=== PATIENT | male | born 1940 | race Caucasian/White ===

== ENCOUNTER 2019-07-11 18:00 | Inpatient (IN) ==
[2019-07-11] MEDS ORDERED: Aspirin 81 MG TAB.CHEW PO STA (18:16)
[2019-07-11 19:10] LABS: Basophils % 0.4 %; Eosinophils # 0.1 K/mcL (0.0-0.6); Eosinophils % 0.8 %; Hematocrit 44.8 % (37.5-50.1); Immature Granulocytes % 0.5 % (0-4); Lymphocytes # 1.8 K/mcL (0.6-4.6); Mean Corpuscular HGB Conc 33.5 g/dL (31.6-35.5); Mean Corpuscular Hemoglobin 30.7 pg (28.0-33.3); Mean Corpuscular Volume 91.8 fL (83.0-100.0); Mean Platelet Volume 10.9 fL (9.4-12.4); Monocytes # 0.9 K/mcL (0.0-1.3); Monocytes % 8.7 %; Neutrophils # 7.6 K/mcL (1.6-8.9); Platelet Count 153 K/mcL (140-400); Red Blood Count 4.88 M/mcL (4.19-5.50); Red Cell Distribution Width 14.5 % (11.5-14.5); Segmented Neutrophils % 72.6 %; White Blood Count 10.5 K/mcL (4.3-11.1)
[2019-07-11 19:16] LABS: Calcium 8.9 mg/dL (8.6-10.3); Potassium 3.8 mEq/L (3.5-5.1)
[2019-07-11 19:24] LABS: Troponin I 0.13 ng/mL (< 0.04)
[2019-07-11] MEDS ORDERED: MetroNIDAZOLE 500 MG/100 ML 500 MG/100 ML BAG IVPB ONE (19:33)
[2019-07-11] MEDS ORDERED: 0.9 % Sodium Chloride 1,000 ML IVC ONE (19:34)
[2019-07-11] MEDS ORDERED: Naloxone 0.4 MG/ML INJ IVP PRN (20:06)
[2019-07-11] MEDS ORDERED: D5% in Water 1,000 ML IVC PRN (20:06)
[2019-07-11] MEDS ORDERED: Dextrose Gel 15 GM/37.5 ML TUBE PO PRN ×2 (20:06)
[2019-07-11] MEDS ORDERED: *HR* Dextrose 50 % in Water (Syg) 50 ML SYRINGE IVP PRN (20:06)
[2019-07-11 20:09] LABS: Prothrombin Time 11.7 Seconds (9.4-12.1)
[2019-07-11] MEDS ORDERED: 0.9 % Sodium Chloride 1,000 ML IVC SCH (20:15)
[2019-07-11] MEDS ORDERED: *HR* Heparin 5,000 UNIT/ML VIAL IVP ONE (20:30)
[2019-07-11] MEDS ORDERED: Nitroglycerin 0.4 MG TAB.SUBL SL PRN (20:30)
[2019-07-11] MEDS ORDERED: *HR* Heparin 5,000 UNIT/ML VIAL IVP PRN ×2 (20:30)
[2019-07-11] MEDS ORDERED: Heparin 25,000 UNIT/250 ML D5W 25,000 UNIT/250 ML IV.SOLN IVC SCH (21:00)
[2019-07-11 21:02] LABS: Estimated Average Glucose 237 mg/dl
[2019-07-11] MEDS: Insulin LISPRO 300 UNITS/3 ML VIAL SQ SCH (21:44)
[2019-07-11 22:26] LABS: Hematocrit 42.6 % (37.5-50.1); Hemoglobin 14.1 g/dL (12.9-16.9); Mean Corpuscular HGB Conc 33.1 g/dL (31.6-35.5); Mean Corpuscular Hemoglobin 30.4 pg (28.0-33.3); Mean Corpuscular Volume 91.8 fL (83.0-100.0); Mean Platelet Volume 11.1 fL (9.4-12.4); Platelet Count 154 K/mcL (140-400); Red Blood Count 4.64 M/mcL (4.19-5.50); Red Cell Distribution Width 14.6 % (11.5-14.5); White Blood Count 10.5 K/mcL (4.3-11.1)
[2019-07-11 22:33] LABS: Heparin anti-factor XA UFH < 0.04 IU/mL (0.30-0.70); Prothrombin Time 11.4 Seconds (9.4-12.1)
[2019-07-11 22:51] LABS: Bilirubin,Urine Negative (Negative); Blood,Urine Negative (Negative); Clarity,Urine Clear (Clear); Color,Urine Yellow (Yellow); Glucose,Urine (UA) 100 mg/dL (Normal); Ketones,Urine Negative (Negative); Leukocyte Esterase,Urine Negative (Negative); Nitrite,Urine Negative (Negative); PH,Urine 5.5 pH Units (5.0-8.0); Protein,Urine Negative (Neg-Trace); Specific Gravity,Urine 1.019 (1.010-1.025); Urobilinogen,Urine Normal (Normal)
[2019-07-11] MEDS ORDERED: Melatonin 3 MG TABLET PO ONE (23:35)
[2019-07-12] MEDS ORDERED: Naloxone 0.4 MG/ML INJ IVP PRN (01:48)
[2019-07-12] MEDS ORDERED: *HR* LORazepam 2 MG/ML VIAL IVP ONE (01:51)
[2019-07-12] MEDS: Insulin DETEMIR 100 UNIT/ML X5UNITS SQ SCH ×2 (02:16→09:46)
[2019-07-12 03:05] LABS: Basophils % 0.3 %; Eosinophils # 0.1 K/mcL (0.0-0.6); Eosinophils % 0.9 %; Hematocrit 40.6 % (37.5-50.1); Hemoglobin 13.4 g/dL (12.9-16.9); Immature Granulocytes % 0.4 % (0-4); Lymphocytes # 1.8 K/mcL (0.6-4.6); Lymphocytes % 19.4 %; Mean Corpuscular Hemoglobin 30.4 pg (28.0-33.3); Mean Corpuscular Volume 92.1 fL (83.0-100.0); Mean Platelet Volume 11.1 fL (9.4-12.4); Monocytes # 0.9 K/mcL (0.0-1.3); Monocytes % 10.4 %; Neutrophils # 6.2 K/mcL (1.6-8.9); Platelet Count 148 K/mcL (140-400); Red Blood Count 4.41 M/mcL (4.19-5.50); Red Cell Distribution Width 14.6 % (11.5-14.5); Segmented Neutrophils % 68.6 %
[2019-07-12 03:24] LABS: Albumin 3.2 g/dL (3.5-5.7); Albumin/Globulin Ratio 1.3 (1.1-2.2); Bilirubin,Total 0.6 mg/dL (0.3-1.0); Calcium 7.9 mg/dL (8.6-10.3); Chol/HDL Ratio 2.8 (0-4.9); Globulin 2.4 g/dL (2.4-3.5); Magnesium 1.8 mg/dL (1.6-2.6); Phosphorous 2.9 mg/dL (2.7-4.5); Potassium 3.8 mEq/L (3.5-5.1); Total Protein 5.6 g/dL (6.4-8.9)
[2019-07-12] MEDS: MetroNIDAZOLE 500 MG/100 ML 500 MG/100 ML BAG IVPB SCH ×2 (05:14→09:44)
[2019-07-12] MEDS ORDERED: Perflutren Lipid Microsphere 1.3 ML in 0.9 % Sodium Chloride 8.7 ML IVP ONE (08:12)
[2019-07-12] MEDS: Insulin LISPRO 300 UNITS/3 ML VIAL SQ SCH ×3 (09:30→17:11)
[2019-07-12] MEDS: allopurinoL 300 MG TABLET PO SCH (09:44)
[2019-07-12] MEDS: Pregabalin 75 MG CAPSULE PO SCH ×2 (09:44→19:41)
[2019-07-12] MEDS: Aspirin Enteric Coated 81 MG Tablet PO SCH (09:45)
[2019-07-12] MEDS: Isosorbide MONOnitrate (24 HR) 30 MG TAB.ER.24H PO SCH (09:45)
[2019-07-12] MEDS ORDERED: Piperacillin/Tazobactam 3.375 GM in 0.9 % Sodium Chloride Mini Bag 100 ML IVPB SCH (10:04)
[2019-07-12] MEDS: carvediloL 6.25 MG TABLET PO SCH ×2 (11:29→17:29)
[2019-07-12] MEDS: Furosemide 40 MG TABLET PO SCH (17:29)
[2019-07-12] MEDS ORDERED: *HR* Heparin 5,000 UNIT/ML VIAL SQ SCH (18:00)
[2019-07-12] MEDS: Piperacillin/Tazobactam 3.375 GM in 0.9 % Sodium Chloride Mini Bag 100 ML IVPB SCH (19:41)
[2019-07-12] MEDS ORDERED: Insulin DETEMIR 100 UNIT/ML X5UNITS SQ SCH (21:00)
[2019-07-13] MEDS ORDERED: *HR* LORazepam 2 MG/ML VIAL IVP ONE (00:07)
[2019-07-13] MEDS: Piperacillin/Tazobactam 3.375 GM in 0.9 % Sodium Chloride Mini Bag 100 ML IVPB SCH ×3 (03:42→22:18)
[2019-07-13 05:23] LABS: Calcium 8.7 mg/dL (8.6-10.3); Magnesium 1.9 mg/dL (1.6-2.6); Phosphorous 2.6 mg/dL (2.7-4.5); Potassium 3.8 mEq/L (3.5-5.1)
[2019-07-13] MEDS: Insulin LISPRO 300 UNITS/3 ML VIAL SQ SCH ×3 (11:21→16:57)
[2019-07-13] MEDS: Isosorbide MONOnitrate (24 HR) 30 MG TAB.ER.24H PO SCH (11:29)
[2019-07-13] MEDS: Pregabalin 75 MG CAPSULE PO SCH ×2 (11:29→22:21)
[2019-07-13] MEDS: Aspirin Enteric Coated 81 MG Tablet PO SCH (11:29)
[2019-07-13] MEDS: allopurinoL 300 MG TABLET PO SCH (11:30)
[2019-07-13] MEDS: carvediloL 6.25 MG TABLET PO SCH ×2 (11:30→16:22)
[2019-07-13] MEDS: Furosemide 40 MG TABLET PO SCH ×2 (11:30→16:22)
[2019-07-13] MEDS: Insulin DETEMIR 100 UNIT/ML X5UNITS SQ SCH ×2 (11:32→22:20)
[2019-07-13] MEDS: *HR* LORazepam 1 MG TABLET PO PRN (22:21)
[2019-07-14 03:23] LABS: Calcium 8.4 mg/dL (8.6-10.3); Magnesium 1.7 mg/dL (1.6-2.6); Phosphorous 3.1 mg/dL (2.7-4.5)
[2019-07-14] MEDS: Piperacillin/Tazobactam 3.375 GM in 0.9 % Sodium Chloride Mini Bag 100 ML IVPB SCH ×3 (05:38→20:45)
[2019-07-14] MEDS: Aspirin Enteric Coated 81 MG Tablet PO SCH (08:53)
[2019-07-14] MEDS: Isosorbide MONOnitrate (24 HR) 30 MG TAB.ER.24H PO SCH (08:53)
[2019-07-14] MEDS: allopurinoL 300 MG TABLET PO SCH (08:54)
[2019-07-14] MEDS: Insulin LISPRO 300 UNITS/3 ML VIAL SQ SCH ×4 (08:54→20:53)
[2019-07-14] MEDS: carvediloL 6.25 MG TABLET PO SCH ×2 (08:54→16:53)
[2019-07-14] MEDS: Pregabalin 75 MG CAPSULE PO SCH ×2 (08:54→20:47)
[2019-07-14] MEDS: Furosemide 40 MG TABLET PO SCH ×2 (08:54→16:53)
[2019-07-14] MEDS: Insulin DETEMIR 100 UNIT/ML X5UNITS SQ SCH ×2 (08:58→20:52)
[2019-07-14] MEDS: *HR* Heparin 5,000 UNIT/ML VIAL SQ SCH (16:53)
[2019-07-14] MEDS: *HR* LORazepam 1 MG TABLET PO PRN (20:48)
[2019-07-15] MEDS: Piperacillin/Tazobactam 3.375 GM in 0.9 % Sodium Chloride Mini Bag 100 ML IVPB SCH ×3 (05:14→20:26)
[2019-07-15] MEDS: *HR* Heparin 5,000 UNIT/ML VIAL SQ SCH ×2 (05:15→17:05)
[2019-07-15] MEDS: carvediloL 6.25 MG TABLET PO SCH ×2 (08:18→17:05)
[2019-07-15] MEDS: Aspirin Enteric Coated 81 MG Tablet PO SCH (08:18)
[2019-07-15] MEDS: allopurinoL 300 MG TABLET PO SCH (08:18)
[2019-07-15] MEDS: Insulin LISPRO 300 UNITS/3 ML VIAL SQ SCH ×6 (08:19→20:28)
[2019-07-15] MEDS: Isosorbide MONOnitrate (24 HR) 30 MG TAB.ER.24H PO SCH (08:19)
[2019-07-15] MEDS: Pregabalin 75 MG CAPSULE PO SCH ×2 (08:19→20:26)
[2019-07-15] MEDS: Insulin DETEMIR 100 UNIT/ML X5UNITS SQ SCH ×2 (08:19→20:27)
[2019-07-15] MEDS: Furosemide 40 MG TABLET PO SCH ×2 (08:19→17:05)
[2019-07-15] MEDS: *HR* LORazepam 1 MG TABLET PO PRN (20:26)
[2019-07-16 01:59] LABS: Calcium 8.9 mg/dL (8.6-10.3); Phosphorous 2.4 mg/dL (2.7-4.5); Potassium 3.6 mEq/L (3.5-5.1)
[2019-07-16] MEDS: Piperacillin/Tazobactam 3.375 GM in 0.9 % Sodium Chloride Mini Bag 100 ML IVPB SCH ×3 (04:31→21:53)
[2019-07-16] MEDS: *HR* Heparin 5,000 UNIT/ML VIAL SQ SCH ×2 (04:32→17:21)
[2019-07-16] MEDS: Aspirin Enteric Coated 81 MG Tablet PO SCH (08:10)
[2019-07-16] MEDS: allopurinoL 300 MG TABLET PO SCH (08:10)
[2019-07-16] MEDS: Furosemide 40 MG TABLET PO SCH ×2 (08:10→17:21)
[2019-07-16] MEDS: Isosorbide MONOnitrate (24 HR) 30 MG TAB.ER.24H PO SCH (08:10)
[2019-07-16] MEDS: carvediloL 6.25 MG TABLET PO SCH ×2 (08:10→17:21)
[2019-07-16] MEDS: Pregabalin 75 MG CAPSULE PO SCH ×2 (08:10→21:52)
[2019-07-16] MEDS: Insulin DETEMIR 100 UNIT/ML X5UNITS SQ SCH ×2 (08:11→21:52)
[2019-07-16] MEDS: Insulin LISPRO 300 UNITS/3 ML VIAL SQ SCH ×7 (08:11→22:05)
[2019-07-16] MEDS: *HR* LORazepam 1 MG TABLET PO PRN (21:52)
[2019-07-17] MEDS: Piperacillin/Tazobactam 3.375 GM in 0.9 % Sodium Chloride Mini Bag 100 ML IVPB SCH ×2 (04:25→12:08)
[2019-07-17] MEDS: *HR* Heparin 5,000 UNIT/ML VIAL SQ SCH (05:52)
[2019-07-17] MEDS: Insulin DETEMIR 100 UNIT/ML X5UNITS SQ SCH (07:59)
[2019-07-17] MEDS: allopurinoL 300 MG TABLET PO SCH (07:59)
[2019-07-17] MEDS: Pregabalin 75 MG CAPSULE PO SCH (07:59)
[2019-07-17] MEDS: Aspirin Enteric Coated 81 MG Tablet PO SCH (07:59)
[2019-07-17] MEDS: Furosemide 40 MG TABLET PO SCH (07:59)
[2019-07-17] MEDS: Insulin LISPRO 300 UNITS/3 ML VIAL SQ SCH ×4 (08:00→11:58)
[2019-07-17] MEDS: carvediloL 6.25 MG TABLET PO SCH (08:11)
[2019-07-17] MEDS: Isosorbide MONOnitrate (24 HR) 30 MG TAB.ER.24H PO SCH (08:11)
[2019-07-17 11:01] VITALS: BP 111/69
== END 2019-07-17 13:25 | disposition home or self-care (01) | DRG 392 ==
LOC: 2ANU 18:00 → EMEROOARM 18:00 → SUATTDRO 20:03 → 2ANU 21:05
PROVIDERS: ADMIT Family Medicine; ATTEND Internal Medicine

== ENCOUNTER 2019-08-24 13:46 | Observation (INO) ==
[2019-08-24] MEDS ORDERED: *HR* Promethazine 25 MG/ML VIAL IVP PRN (15:37)
[2019-08-24] MEDS ORDERED: Ondansetron 4 MG/2 ML VIAL IVP PRN (15:37)
[2019-08-24] MEDS ORDERED: Naloxone 0.4 MG/ML INJ IVP PRN (15:37)
[2019-08-24] MEDS ORDERED: Acetaminophen 325 MG TABLET PO PRN (15:37)
[2019-08-24] MEDS ORDERED: MOM Conc 10 ML UD.LIQ PO PRN (15:37)
[2019-08-24] MEDS ORDERED: Mag Hydrox/Al Hydrox/Simeth 30 ML UDC PO PRN (15:37)
[2019-08-24] MEDS ORDERED: *HR* Dextrose 50 % in Water (Syg) 50 ML SYRINGE IVP PRN (15:44)
[2019-08-24] MEDS ORDERED: Dextrose Gel 15 GM/37.5 ML TUBE PO PRN ×2 (15:44)
[2019-08-24] MEDS ORDERED: D5% in Water 1,000 ML IVC PRN (15:44)
[2019-08-24] MEDS ORDERED: *HR* Heparin 5,000 UNIT/ML VIAL IVP PRN ×2 (15:53)
[2019-08-24] MEDS ORDERED: *HR* Heparin 5,000 UNIT/ML VIAL IVP ONE (15:53)
[2019-08-24] MEDS ORDERED: Heparin 25,000 UNIT/250 ML D5W 25,000 UNIT/250 ML IV.SOLN IVC SCH (16:00)
[2019-08-24 16:25] LABS: Hematocrit 44.2 % (37.5-50.1); Hemoglobin 14.2 g/dL (12.9-16.9); Mean Corpuscular HGB Conc 32.1 g/dL (31.6-35.5); Mean Corpuscular Hemoglobin 29.8 pg (28.0-33.3); Mean Corpuscular Volume 92.9 fL (83.0-100.0); Mean Platelet Volume 11.2 fL (9.4-12.4); Platelet Count 193 K/mcL (140-400); Red Blood Count 4.76 M/mcL (4.19-5.50); Red Cell Distribution Width 13.9 % (11.5-14.5); White Blood Count 9.4 K/mcL (4.3-11.1)
[2019-08-24 16:29] LABS: Heparin anti-factor XA UFH < 0.04 IU/mL (0.30-0.70)
[2019-08-24 16:30] LABS: Prothrombin Time 11.8 Seconds (9.4-12.1)
[2019-08-24] MEDS: carvediloL 6.25 MG TABLET PO SCH (17:09)
[2019-08-24] MEDS: Insulin LISPRO 300 UNITS/3 ML VIAL SQ SCH (17:10)
[2019-08-24] MEDS: Pregabalin 75 MG CAPSULE PO SCH (20:03)
[2019-08-24] MEDS ORDERED: Morphine Sulfate 2 MG/ML SYRINGE IVP ONE (20:12)
[2019-08-24] MEDS: *HR* OxyCODONE Immed Rel 5 MG TABLET PO PRN (20:28)
[2019-08-24] MEDS ORDERED: methocarbamoL 500 MG TABLET PO ONE (20:50)
[2019-08-24] MEDS ORDERED: Insulin LISPRO 300 UNITS/3 ML VIAL SQ SCH (21:00)
[2019-08-24] MEDS: Insulin DETEMIR 100 UNIT/ML X5UNITS SQ SCH (21:29)
[2019-08-25 05:12] LABS: Basophils # 0.1 K/mcL (0.0-0.2); Basophils % 0.5 %; Eosinophils # 0.2 K/mcL (0.0-0.6); Eosinophils % 1.9 %; Hematocrit 43.6 % (37.5-50.1); Hemoglobin 14.2 g/dL (12.9-16.9); Immature Granulocytes % 0.6 % (0-4); Lymphocytes # 3.3 K/mcL (0.6-4.6); Lymphocytes % 32.9 %; Mean Corpuscular HGB Conc 32.6 g/dL (31.6-35.5); Monocytes # 0.8 K/mcL (0.0-1.3); Monocytes % 7.8 %; Neutrophils # 5.6 K/mcL (1.6-8.9); Platelet Count 195 K/mcL (140-400); Red Blood Count 4.74 M/mcL (4.19-5.50); Red Cell Distribution Width 14.2 % (11.5-14.5); Segmented Neutrophils % 56.3 %
[2019-08-25 05:30] LABS: BUN/Creatinine Ratio 12 (6-26); Blood Urea Nitrogen 16 mg/dL (8-23); Calcium 8.2 mg/dL (8.6-10.3); Carbon Dioxide 30 mEq/L (23-29); Chloride 103 mEq/L (98-107); Chol/HDL Ratio 2.9 (0-4.9); Cholesterol 107 mg/dL (< 200); Glucose 123 mg/dL (70-105); HDL Cholesterol 37 mg/dL (40-59); LDL Cholesterol,Calculated 41 mg/dL (0-99); Magnesium 1.8 mg/dL (1.6-2.6); Osmolality,Calculated 295 (280-300); Phosphorous 2.7 mg/dL (2.7-4.5); Potassium 3.1 mEq/L (3.5-5.1); Sodium 141 mEq/L (136-145); Triglycerides 146 mg/dL (< 150); eGFR For African Americans > 60 (> 60); eGFR For Non-African Americans 51 (> 60)
[2019-08-25] MEDS: *HR* OxyCODONE Immed Rel 5 MG TABLET PO PRN (07:53)
[2019-08-25] MEDS ORDERED: calcitrioL 0.25 MCG CAPSULE PO SCH (09:00)
[2019-08-25] MEDS ORDERED: Aspirin Enteric Coated 81 MG Tablet PO SCH (09:00)
[2019-08-25] MEDS ORDERED: Furosemide 40 MG TABLET PO SCH (09:00)
[2019-08-25] MEDS ORDERED: Isosorbide MONOnitrate (24 HR) 30 MG TAB.ER.24H PO SCH (09:00)
[2019-08-25] MEDS ORDERED: allopurinoL 300 MG TABLET PO SCH (09:00)
[2019-08-25] MEDS: Insulin LISPRO 300 UNITS/3 ML VIAL SQ SCH ×2 (09:27→12:43)
[2019-08-25] MEDS: carvediloL 6.25 MG TABLET PO SCH (09:38)
[2019-08-25] MEDS: Pregabalin 75 MG CAPSULE PO SCH (09:39)
[2019-08-25] MEDS: Insulin DETEMIR 100 UNIT/ML X5UNITS SQ SCH (09:40)
[2019-08-25 10:57] VITALS: BP 105/65
[2019-08-26] MEDS ORDERED: Cholecalciferol (D-3) 1,000 UNIT (25MCG) TABLET PO SCH (09:00)
== END 2019-08-25 14:55 | disposition home health service (06) ==
LOC: EMEROOARM 13:46 → 2ANU 13:46
PROVIDERS: ADMIT Internal Medicine; ATTEND Internal Medicine

== ENCOUNTER 2021-09-17 19:08 | Inpatient (IN) ==
[2021-09-17] MEDS ORDERED: 0.9 % Sodium Chloride 1,000 ML IVC SCH (23:45)
[2021-09-17] MEDS ORDERED: Naloxone 0.4 MG/ML INJ IVP PRN (23:58)
[2021-09-17] MEDS ORDERED: Acetaminophen 325 MG TABLET PO PRN (23:58)
[2021-09-17] MEDS ORDERED: Melatonin 3 MG TABLET PO PRN (23:58)
[2021-09-17] MEDS ORDERED: Ondansetron ODT 4 MG TAB.RAPDIS SL PRN (23:58)
[2021-09-18] MEDS ORDERED: Morphine Sulfate 2 MG/ML SYRINGE IVP ONE (00:27)
[2021-09-18 00:51] LABS: Bacteria,Urine Few per hpf (None-Few); Bilirubin,Urine Negative (Negative); Blood,Urine Small (Negative); Clarity,Urine Turbid (Clear); Color,Urine Yellow (Yellow); Glucose,Urine (UA) 150 mg/dL (Normal); Hyaline Casts,Urine Few per lpf (None Seen); Ketones,Urine 20 mg/dL (Negative); Leukocyte Esterase,Urine Moderate (Negative); Mucus,Urine Few per lpf (None-Few); Nitrite,Urine Negative (Negative); PH,Urine 6.5 pH Units (5.0-8.0); Protein,Urine >=300 mg/dL (Neg-Trace); Specific Gravity,Urine 1.023 (1.010-1.025); Squamous Epithelial Cell,Urine Few per hpf (None-Few); Urobilinogen,Urine Normal (Normal); WBC,Urine TNTC per hpf (0-3)
[2021-09-18] MEDS ORDERED: *HR* Dextrose 50 % in Water (Syg) 50 ML SYRINGE IVP PRN ×3 (01:04→22:26)
[2021-09-18] MEDS ORDERED: Dextrose Gel 15 GM/37.5 ML TUBE PO PRN ×5 (01:04→22:26)
[2021-09-18] MEDS ORDERED: D5% in Water 1,000 ML IVC PRN ×3 (01:04→22:26)
[2021-09-18 01:41] LABS: Hematocrit 35.4 % (37.5-50.1); Hemoglobin 11.5 g/dL (12.9-16.9); Mean Corpuscular HGB Conc 32.5 g/dL (31.6-35.5); Mean Corpuscular Hemoglobin 30.3 pg (28.0-33.3); Mean Corpuscular Volume 93.2 fL (83.0-100.0); Mean Platelet Volume 10.4 fL (9.4-12.4); Platelet Count 363 K/mcL (140-400); Red Cell Distribution Width 14.9 % (11.5-14.5)
[2021-09-18 02:06] LABS: BUN/Creatinine Ratio 24 (6-26); Blood Urea Nitrogen 33 mg/dL (8-23); Calcium 8.2 mg/dL (8.6-10.3); Carbon Dioxide 23 mEq/L (23-29); Chloride 101 mEq/L (98-107); Glucose 309 mg/dL (70-105); Magnesium 1.6 mg/dL (1.6-2.6); Osmolality,Calculated 303 (280-300); Phosphorous 2.8 mg/dL (2.7-4.5); Potassium 4.1 mEq/L (3.5-5.1); Sodium 137 mEq/L (136-145); eGFR For African Americans > 60 (> 60); eGFR For Non-African Americans 50 (> 60)
[2021-09-18] MEDS: Insulin LISPRO 300 UNITS/3 ML VIAL SUBQ SCH ×3 (05:26→23:09)
[2021-09-18 05:59] LABS: Estimated Average Glucose 237 mg/dl; Hemoglobin A1C 9.9 %
[2021-09-18] MEDS ORDERED: carvediloL 6.25 MG TABLET PO SCH (08:00)
[2021-09-18] MEDS ORDERED: Piperacillin/Tazobactam 3.375 GM in 0.9 % Sodium Chloride Mini Bag 100 ML IVPB SCH (08:00)
[2021-09-18] MEDS ORDERED: lisinopriL 5 MG TABLET PO SCH (09:00)
[2021-09-18] MEDS ORDERED: Isosorbide MONOnitrate (24 HR) 30 MG TAB.ER.24H PO SCH (09:00)
[2021-09-18] MEDS ORDERED: *HR* FentaNYL (PF) 100 MCG/2 ML VIAL IVP PRN (10:33)
[2021-09-18] MEDS ORDERED: *HR* HYDROmorphone PF 0.5 MG/0.5 ML SYRINGE IVP PRN (10:33)
[2021-09-18] MEDS ORDERED: Albuterol 2.5 MG/3 ML NEBULIZER IH PRN ×2 (10:33→15:16)
[2021-09-18] MEDS ORDERED: Ondansetron 4 MG/2 ML VIAL IVP PRN ×2 (10:33→15:16)
[2021-09-18] MEDS ORDERED: Bupivacaine/EPI 1:200k 0.25% 50 ML VIAL ONE (11:07)
[2021-09-18] MEDS ORDERED: Lidocaine 1% 20 ML MDV ONE (11:07)
[2021-09-18] MEDS ORDERED: Lidocaine -MPF 2% 2 ML VIAL ONE (12:45)
[2021-09-18] MEDS ORDERED: Ondansetron 4 MG/2 ML VIAL ONE (12:45)
[2021-09-18] MEDS ORDERED: *HR* FentaNYL (PF) 100 MCG/2 ML VIAL ONE (12:45)
[2021-09-18] MEDS ORDERED: Insulin Human Regular 8 UNIT in 0.9 % Sodium Chloride 10 ML IV ONE (12:49)
[2021-09-18] MEDS ORDERED: carvediloL 6.25 MG TABLET PO ONE (12:52)
[2021-09-18] MEDS ORDERED: Vancomycin 1,000 MG VIAL ONE (12:59)
[2021-09-18] MEDS ORDERED: Isosorbide MONOnitrate (24 HR) 30 MG TAB.ER.24H PO ONE (13:01)
[2021-09-18] MEDS ORDERED: *HR* Vasopressin 20 UNIT/ML VIAL ONE (13:23)
[2021-09-18] MEDS ORDERED: *HR* Etomidate 40 MG/20 ML VIAL IVP ONE (13:46)
[2021-09-18] MEDS ORDERED: Ondansetron ODT 4 MG TAB.RAPDIS SL PRN (15:16)
[2021-09-18] MEDS ORDERED: Melatonin 3 MG TABLET PO PRN (15:16)
[2021-09-18] MEDS ORDERED: Naloxone 0.4 MG/ML INJ IVP PRN (15:16)
[2021-09-18] MEDS: Piperacillin/Tazobactam 3.375 GM in 0.9 % Sodium Chloride Mini Bag 100 ML IVPB SCH ×2 (17:12→23:08)
[2021-09-18] MEDS: carvediloL 6.25 MG TABLET PO SCH (17:20)
[2021-09-18] MEDS: Acetaminophen 325 MG TABLET PO PRN (17:24)
[2021-09-18] MEDS ORDERED: Insulin LISPRO 300 UNITS/3 ML VIAL SUBQ SCH (18:00)
[2021-09-18] MEDS ORDERED: Vancomycin 1,250 MG/262.5 ML IV.SOLN IVPB SCH (18:00)
[2021-09-18] MEDS ORDERED: *HR* LORazepam 1 MG TABLET PO SCH (21:00)
[2021-09-18] MEDS ORDERED: Melatonin 3 MG TABLET PO SCH (21:00)
[2021-09-18] MEDS ORDERED: Insulin DETEMIR 100 UNIT/ML X5UNITS SUBQ SCH (21:00)
[2021-09-18] MEDS ORDERED: QUEtiapine Fumarate 100 MG TABLET PO SCH (21:00)
[2021-09-18] MEDS ORDERED: QUEtiapine Fumarate 25 MG TABLET PO SCH (21:00)
[2021-09-18] MEDS: *HR* LORazepam 1 MG TABLET PO SCH (22:17)
[2021-09-18] MEDS: QUEtiapine Fumarate 25 MG TABLET PO SCH (22:17)
[2021-09-18] MEDS: Melatonin 3 MG TABLET PO SCH (22:18)
[2021-09-18] MEDS: QUEtiapine Fumarate 100 MG TABLET PO SCH (22:18)
[2021-09-18] MEDS: Insulin DETEMIR 100 UNIT/ML X5UNITS SUBQ SCH (23:09)
[2021-09-19 05:09] LABS: Basophils % 0.2 %; Immature Granulocytes % 1.1 % (0-4); Lymphocytes # 0.9 K/mcL (0.6-4.6); Lymphocytes % 4.7 %; Mean Corpuscular HGB Conc 31.9 g/dL (31.6-35.5); Mean Corpuscular Hemoglobin 30.4 pg (28.0-33.3); Mean Corpuscular Volume 95.1 fL (83.0-100.0); Mean Platelet Volume 10.5 fL (9.4-12.4); Monocytes # 0.7 K/mcL (0.0-1.3); Monocytes % 3.9 %; Neutrophils # 16.3 K/mcL (1.6-8.9); Platelet Count 324 K/mcL (140-400); Red Blood Count 3.26 M/mcL (4.19-5.50); Red Cell Distribution Width 15.3 % (11.5-14.5); Segmented Neutrophils % 90.1 %; White Blood Count 18.1 K/mcL (4.3-11.1)
[2021-09-19 05:14] LABS: Hemoglobin 9.9 g/dL (12.9-16.9)
[2021-09-19 05:27] LABS: BUN/Creatinine Ratio 26 (6-26); Blood Urea Nitrogen 30 mg/dL (8-23); Calcium 7.7 mg/dL (8.6-10.3); Carbon Dioxide 23 mEq/L (23-29); Chloride 105 mEq/L (98-107); Glucose 339 mg/dL (70-105); Osmolality,Calculated 312 (280-300); Potassium 3.9 mEq/L (3.5-5.1); Sodium 141 mEq/L (136-145); eGFR For African Americans > 60 (> 60); eGFR For Non-African Americans > 60 (> 60)
[2021-09-19] MEDS: Acetaminophen 325 MG TABLET PO PRN (08:11)
[2021-09-19] MEDS: lisinopriL 5 MG TABLET PO SCH (08:12)
[2021-09-19] MEDS: carvediloL 6.25 MG TABLET PO SCH ×2 (08:12→17:20)
[2021-09-19] MEDS: Isosorbide MONOnitrate (24 HR) 30 MG TAB.ER.24H PO SCH (08:12)
[2021-09-19] MEDS: Sennosides 8.6 MG TABLET PO SCH (08:13)
[2021-09-19] MEDS: Insulin LISPRO 300 UNITS/3 ML VIAL SUBQ SCH ×4 (08:14→20:53)
[2021-09-19] MEDS: Piperacillin/Tazobactam 3.375 GM in 0.9 % Sodium Chloride Mini Bag 100 ML IVPB SCH ×2 (08:15→17:04)
[2021-09-19] MEDS ORDERED: Sennosides 8.6 MG TABLET PO SCH (09:00)
[2021-09-19] MEDS ORDERED: *HR* OxyCODONE/APAP 7.5/325 TABLET PO PRN (10:57)
[2021-09-19] MEDS: *HR* HYDROcodone/Acet 5/325 mg TABLET PO PRN (13:38)
[2021-09-19] MEDS ORDERED: Vancomycin 1,500 MG/265 ML IV.SOLN IVPB SCH (18:00)
[2021-09-19] MEDS ORDERED: *HR* OxyCODONE Immed Rel 5 MG TABLET PO ONE (19:36)
[2021-09-19] MEDS ORDERED: *HR* HYDROcodone/Acet 5/325 mg TABLET PO ONE (20:28)
[2021-09-19] MEDS: Melatonin 3 MG TABLET PO SCH (20:45)
[2021-09-19] MEDS: QUEtiapine Fumarate 25 MG TABLET PO SCH (20:45)
[2021-09-19] MEDS: *HR* LORazepam 1 MG TABLET PO SCH (20:45)
[2021-09-19] MEDS: QUEtiapine Fumarate 100 MG TABLET PO SCH (20:46)
[2021-09-19] MEDS: Insulin DETEMIR 100 UNIT/ML X5UNITS SUBQ SCH (20:52)
[2021-09-20] MEDS: Piperacillin/Tazobactam 3.375 GM in 0.9 % Sodium Chloride Mini Bag 100 ML IVPB SCH ×3 (00:46→16:03)
[2021-09-20] MEDS: *HR* HYDROcodone/Acet 5/325 mg TABLET PO PRN (03:20)
[2021-09-20 03:53] LABS: Basophils # 0.1 K/mcL (0.0-0.2); Basophils % 0.5 %; Eosinophils # 0.2 K/mcL (0.0-0.6); Eosinophils % 1.1 %; Immature Granulocytes % 1.4 % (0-4); Lymphocytes % 13.9 %; Mean Corpuscular HGB Conc 31.4 g/dL (31.6-35.5); Mean Corpuscular Volume 95.4 fL (83.0-100.0); Mean Platelet Volume 10.5 fL (9.4-12.4); Monocytes % 6.7 %; Neutrophils # 10.9 K/mcL (1.6-8.9); Platelet Count 346 K/mcL (140-400); Red Blood Count 3.67 M/mcL (4.19-5.50); Red Cell Distribution Width 15.3 % (11.5-14.5); Segmented Neutrophils % 76.4 %; White Blood Count 14.2 K/mcL (4.3-11.1)
[2021-09-20 04:15] LABS: Calcium 8.1 mg/dL (8.6-10.3); Potassium 3.7 mEq/L (3.5-5.1)
[2021-09-20] MEDS: Sennosides 8.6 MG TABLET PO SCH (08:39)
[2021-09-20] MEDS: carvediloL 6.25 MG TABLET PO SCH ×2 (08:39→18:25)
[2021-09-20] MEDS: lisinopriL 5 MG TABLET PO SCH (08:39)
[2021-09-20] MEDS: Insulin LISPRO 300 UNITS/3 ML VIAL SUBQ SCH ×4 (08:40→21:32)
[2021-09-20] MEDS: Isosorbide MONOnitrate (24 HR) 30 MG TAB.ER.24H PO SCH (08:40)
[2021-09-20] MEDS ORDERED: *HR* HYDROcodone/Acet 5/325 mg TABLET PO PRN (11:13)
[2021-09-20] MEDS ORDERED: 0.9 % Sodium Chloride 1,000 ML IVC SCH (11:30)
[2021-09-20] MEDS ORDERED: Haloperidol Lactate 5 MG/ML VIAL IM ONE (12:27)
[2021-09-20] MEDS: Insulin DETEMIR 100 UNIT/ML X5UNITS SUBQ SCH (21:31)
[2021-09-20] MEDS: QUEtiapine Fumarate 25 MG TABLET PO SCH (21:34)
[2021-09-20] MEDS: *HR* LORazepam 1 MG TABLET PO SCH (21:34)
[2021-09-20] MEDS: QUEtiapine Fumarate 100 MG TABLET PO SCH (21:34)
[2021-09-20] MEDS: Melatonin 3 MG TABLET PO SCH (21:35)
[2021-09-21] MEDS: Piperacillin/Tazobactam 3.375 GM in 0.9 % Sodium Chloride Mini Bag 100 ML IVPB SCH ×3 (00:21→18:28)
[2021-09-21 01:11] LABS: Basophils # 0.1 K/mcL (0.0-0.2); Basophils % 0.5 %; Eosinophils # 0.2 K/mcL (0.0-0.6); Eosinophils % 1.9 %; Hematocrit 31.1 % (37.5-50.1); Immature Granulocytes % 1.6 % (0-4); Lymphocytes # 1.8 K/mcL (0.6-4.6); Lymphocytes % 13.8 %; Mean Corpuscular HGB Conc 32.2 g/dL (31.6-35.5); Mean Corpuscular Hemoglobin 30.1 pg (28.0-33.3); Mean Corpuscular Volume 93.7 fL (83.0-100.0); Mean Platelet Volume 10.8 fL (9.4-12.4); Monocytes # 1.2 K/mcL (0.0-1.3); Monocytes % 9.4 %; Neutrophils # 9.3 K/mcL (1.6-8.9); Nucleated Red Blood Cells 0.2 /100 WBC (0); Platelet Count 319 K/mcL (140-400); Red Blood Count 3.32 M/mcL (4.19-5.50); Red Cell Distribution Width 15.4 % (11.5-14.5); Segmented Neutrophils % 72.8 %; White Blood Count 12.8 K/mcL (4.3-11.1)
[2021-09-21 01:27] LABS: Potassium 3.8 mEq/L (3.5-5.1)
[2021-09-21] MEDS ORDERED: 0.9 % Sodium Chloride 1,000 ML IVC SCH (08:00)
[2021-09-21] MEDS: lisinopriL 5 MG TABLET PO SCH (09:29)
[2021-09-21] MEDS: carvediloL 6.25 MG TABLET PO SCH ×2 (09:30→18:26)
[2021-09-21] MEDS: Isosorbide MONOnitrate (24 HR) 30 MG TAB.ER.24H PO SCH (09:30)
[2021-09-21] MEDS: Acetaminophen 325 MG TABLET PO PRN ×2 (09:30→18:27)
[2021-09-21] MEDS: Sennosides 8.6 MG TABLET PO SCH (09:30)
[2021-09-21] MEDS: Insulin LISPRO 300 UNITS/3 ML VIAL SUBQ SCH ×4 (09:31→21:42)
[2021-09-21] MEDS: Ringers Solution, Lactated 1,000 ML IVC SCH (15:50)
[2021-09-21] MEDS ORDERED: Heparin 1,000 UNITS/500 mL 500 ML ONE ×2 (19:53→20:40)
[2021-09-21] MEDS ORDERED: EPHEDrine 50 MG/ML VIAL ONE (20:35)
[2021-09-21] MEDS ORDERED: *HR* Phenylephrine 10 MG/ML VIAL ONE (20:35)
[2021-09-21] MEDS ORDERED: Vancomycin 1,000 MG VIAL ONE (20:46)
[2021-09-21] MEDS ORDERED: *HR* FentaNYL (PF) 100 MCG/2 ML VIAL ONE (20:50)
[2021-09-21] MEDS ORDERED: *HR* Propofol 200 MG/20 ML VIAL IVP ONE (20:50)
[2021-09-21] MEDS ORDERED: *HR* Etomidate 40 MG/20 ML VIAL IVP ONE (20:51)
[2021-09-21] MEDS ORDERED: Ondansetron 4 MG/2 ML VIAL ONE (20:51)
[2021-09-21] MEDS ORDERED: *HR* Rocuronium Bromide 50 MG/5 ML VIAL ONE (20:51)
[2021-09-21] MEDS ORDERED: *HR* Succinylcholine 200 MG/10 ML VIAL IVP ONE (20:51)
[2021-09-21] MEDS ORDERED: Lidocaine HCL 4 ML Topical Solution (Laryng-O-Jet Kit Sterile Pak) TP ONE (20:51)
[2021-09-21] MEDS ORDERED: Lidocaine -MPF 2% 2 ML VIAL ONE ×2 (20:52→21:33)
[2021-09-21] MEDS ORDERED: Promethazine 6.25 MG in Water for inj. (sterile) 20 ML IVPB PRN (20:57)
[2021-09-21] MEDS ORDERED: *HR* HYDROmorphone PF 0.5 MG/0.5 ML SYRINGE IVP PRN (20:57)
[2021-09-21] MEDS ORDERED: Ondansetron 4 MG/2 ML VIAL IVP PRN (20:57)
[2021-09-21] MEDS: Insulin DETEMIR 100 UNIT/ML X5UNITS SUBQ SCH (21:42)
[2021-09-21] MEDS: *HR* LORazepam 1 MG TABLET PO SCH (21:42)
[2021-09-21] MEDS: QUEtiapine Fumarate 100 MG TABLET PO SCH (21:43)
[2021-09-21] MEDS: QUEtiapine Fumarate 25 MG TABLET PO SCH (21:43)
[2021-09-21] MEDS: Melatonin 3 MG TABLET PO SCH (21:43)
[2021-09-21] MEDS ORDERED: *HR* HYDROMORPHONE 2 MG/ML VIAL ONE (22:35)
[2021-09-22 01:06] LABS: Basophils # 0.1 K/mcL (0.0-0.2); Basophils % 0.4 %; Eosinophils % 0.2 %; Hematocrit 32.6 % (37.5-50.1); Hemoglobin 10.5 g/dL (12.9-16.9); Immature Granulocytes % 2.2 % (0-4); Lymphocytes # 0.9 K/mcL (0.6-4.6); Lymphocytes % 4.3 %; Mean Corpuscular HGB Conc 32.2 g/dL (31.6-35.5); Mean Corpuscular Hemoglobin 30.2 pg (28.0-33.3); Mean Corpuscular Volume 93.7 fL (83.0-100.0); Mean Platelet Volume 10.7 fL (9.4-12.4); Monocytes # 0.8 K/mcL (0.0-1.3); Monocytes % 3.8 %; Nucleated Red Blood Cells 0.1 /100 WBC (0); Platelet Count 333 K/mcL (140-400); Red Blood Count 3.48 M/mcL (4.19-5.50); Red Cell Distribution Width 15.4 % (11.5-14.5); Segmented Neutrophils % 89.1 %
[2021-09-22 01:07] LABS: Neutrophils # 18.3 K/mcL (1.6-8.9); White Blood Count 20.5 K/mcL (4.3-11.1)
[2021-09-22 01:21] LABS: BUN/Creatinine Ratio 25 (6-26); Blood Urea Nitrogen 29 mg/dL (8-23); Calcium 8.4 mg/dL (8.6-10.3); Carbon Dioxide 24 mEq/L (23-29); Chloride 105 mEq/L (98-107); Glucose 279 mg/dL (70-105); Osmolality,Calculated 300 (280-300); Potassium 4.5 mEq/L (3.5-5.1); Sodium 137 mEq/L (136-145); eGFR For African Americans > 60 (> 60); eGFR For Non-African Americans > 60 (> 60)
[2021-09-22] MEDS: Insulin DETEMIR 100 UNIT/ML X5UNITS SUBQ SCH ×2 (05:34→20:10)
[2021-09-22] MEDS ORDERED: *HR* HYDROcodone/Acet 5/325 mg TABLET PO ONE (05:53)
[2021-09-22] MEDS: Insulin LISPRO 300 UNITS/3 ML VIAL SUBQ SCH ×4 (08:18→20:10)
[2021-09-22] MEDS: lisinopriL 5 MG TABLET PO SCH (08:19)
[2021-09-22] MEDS: carvediloL 6.25 MG TABLET PO SCH ×2 (08:20→17:06)
[2021-09-22] MEDS: Isosorbide MONOnitrate (24 HR) 30 MG TAB.ER.24H PO SCH (08:20)
[2021-09-22] MEDS: Sennosides 8.6 MG TABLET PO SCH (08:20)
[2021-09-22] MEDS: Piperacillin/Tazobactam 3.375 GM in 0.9 % Sodium Chloride Mini Bag 100 ML IVPB SCH ×2 (08:21)
[2021-09-22] MEDS: Ringers Solution, Lactated 1,000 ML IVC SCH ×2 (15:03→15:18)
[2021-09-22] MEDS ORDERED: Insulin LISPRO 300 UNITS/3 ML VIAL SUBQ STA (17:16)
[2021-09-22] MEDS: *HR* HYDROmorphone (PF) 1 MG/ML SYRINGE IVP PRN (17:21)
[2021-09-22] MEDS: *HR* LORazepam 1 MG TABLET PO SCH (20:09)
[2021-09-22] MEDS: QUEtiapine Fumarate 100 MG TABLET PO SCH (20:09)
[2021-09-22] MEDS: Melatonin 3 MG TABLET PO SCH (20:09)
[2021-09-22] MEDS: QUEtiapine Fumarate 25 MG TABLET PO SCH (20:09)
[2021-09-23] MEDS ORDERED: Haloperidol Lactate 5 MG/ML VIAL IM ONE (01:33)
[2021-09-23] MEDS: Ringers Solution, Lactated 1,000 ML IVC SCH ×2 (02:43→09:49)
[2021-09-23] MEDS: *HR* HYDROmorphone (PF) 1 MG/ML SYRINGE IVP PRN ×4 (02:44→18:55)
[2021-09-23 05:50] LABS: Basophils # 0.1 K/mcL (0.0-0.2); Basophils % 0.3 %; Eosinophils # 0.1 K/mcL (0.0-0.6); Eosinophils % 0.7 %; Hematocrit 33.7 % (37.5-50.1); Hemoglobin 10.8 g/dL (12.9-16.9); Lymphocytes # 3.2 K/mcL (0.6-4.6); Lymphocytes % 17.6 %; Mean Corpuscular Hemoglobin 30.4 pg (28.0-33.3); Mean Corpuscular Volume 94.9 fL (83.0-100.0); Mean Platelet Volume 10.4 fL (9.4-12.4); Monocytes # 1.2 K/mcL (0.0-1.3); Monocytes % 6.5 %; Neutrophils # 13.6 K/mcL (1.6-8.9); Nucleated Red Blood Cells 0.2 /100 WBC (0); Platelet Count 345 K/mcL (140-400); Red Blood Count 3.55 M/mcL (4.19-5.50); Red Cell Distribution Width 15.5 % (11.5-14.5); Segmented Neutrophils % 73.9 %; White Blood Count 18.4 K/mcL (4.3-11.1)
[2021-09-23 06:06] LABS: BUN/Creatinine Ratio 30 (6-26); Blood Urea Nitrogen 33 mg/dL (8-23); Calcium 8.6 mg/dL (8.6-10.3); Carbon Dioxide 28 mEq/L (23-29); Chloride 104 mEq/L (98-107); Glucose 74 mg/dL (70-105); Osmolality,Calculated 294 (280-300); Potassium 3.7 mEq/L (3.5-5.1); Sodium 139 mEq/L (136-145); eGFR For African Americans > 60 (> 60); eGFR For Non-African Americans > 60 (> 60)
[2021-09-23] MEDS ORDERED: Insulin LISPRO 300 UNITS/3 ML VIAL SUBQ SCH (08:00)
[2021-09-23] MEDS: Dextrose Gel 15 GM/37.5 ML TUBE PO PRN ×2 (08:13→08:46)
[2021-09-23] MEDS ORDERED: Insulin DETEMIR 100 UNIT/ML X5UNITS SUBQ SCH ×2 (09:00→21:00)
[2021-09-23] MEDS: Insulin LISPRO 300 UNITS/3 ML VIAL SUBQ SCH ×3 (09:40→18:00)
[2021-09-23] MEDS: Sennosides 8.6 MG TABLET PO SCH (09:50)
[2021-09-23] MEDS: Isosorbide MONOnitrate (24 HR) 30 MG TAB.ER.24H PO SCH (09:50)
[2021-09-23] MEDS: lisinopriL 5 MG TABLET PO SCH (09:51)
[2021-09-23] MEDS: carvediloL 6.25 MG TABLET PO SCH ×2 (09:52→18:02)
[2021-09-23] MEDS: Acetaminophen 325 MG TABLET PO PRN ×2 (14:34→22:13)
[2021-09-23] MEDS: *HR* Heparin 5,000 UNIT/ML VIAL SQ SCH (18:01)
[2021-09-23] MEDS: QUEtiapine Fumarate 100 MG TABLET PO SCH (21:10)
[2021-09-23] MEDS: *HR* LORazepam 1 MG TABLET PO SCH (21:11)
[2021-09-23] MEDS: QUEtiapine Fumarate 25 MG TABLET PO SCH (21:11)
[2021-09-23] MEDS: Melatonin 3 MG TABLET PO SCH (21:11)
[2021-09-24] MEDS ORDERED: *HR* LORazepam 2 MG/ML VIAL IVP ONE (01:36)
[2021-09-24 04:57] LABS: Basophils # 0.1 K/mcL (0.0-0.2); Basophils % 0.6 %; Eosinophils # 0.3 K/mcL (0.0-0.6); Eosinophils % 2.8 %; Hematocrit 32.4 % (37.5-50.1); Hemoglobin 10.3 g/dL (12.9-16.9); Immature Granulocytes % 1.7 % (0-4); Lymphocytes # 2.5 K/mcL (0.6-4.6); Lymphocytes % 20.5 %; Mean Corpuscular HGB Conc 31.8 g/dL (31.6-35.5); Mean Corpuscular Hemoglobin 30.4 pg (28.0-33.3); Mean Corpuscular Volume 95.6 fL (83.0-100.0); Monocytes # 1.3 K/mcL (0.0-1.3); Monocytes % 10.7 %; Neutrophils # 7.9 K/mcL (1.6-8.9); Nucleated Red Blood Cells 0.2 /100 WBC (0); Platelet Count 336 K/mcL (140-400); Red Blood Count 3.39 M/mcL (4.19-5.50); Red Cell Distribution Width 15.6 % (11.5-14.5); Segmented Neutrophils % 63.7 %; White Blood Count 12.3 K/mcL (4.3-11.1)
[2021-09-24 05:16] LABS: Phosphorous 3.4 mg/dL (2.7-4.5)
[2021-09-24] MEDS: *HR* Heparin 5,000 UNIT/ML VIAL SQ SCH ×2 (06:16→17:08)
[2021-09-24 08:17] VITALS: O2SAT 94
[2021-09-24] MEDS: Sennosides 8.6 MG TABLET PO SCH (08:18)
[2021-09-24] MEDS: lisinopriL 5 MG TABLET PO SCH (08:18)
[2021-09-24] MEDS: carvediloL 6.25 MG TABLET PO SCH ×2 (08:19→17:08)
[2021-09-24] MEDS: Isosorbide MONOnitrate (24 HR) 30 MG TAB.ER.24H PO SCH (08:19)
[2021-09-24] MEDS: Insulin LISPRO 300 UNITS/3 ML VIAL SUBQ SCH ×3 (08:19→17:08)
[2021-09-24 09:39] LABS: BUN/Creatinine Ratio 25 (6-26); Blood Urea Nitrogen 26 mg/dL (8-23); Calcium 8.2 mg/dL (8.6-10.3); Carbon Dioxide 26 mEq/L (23-29); Chloride 105 mEq/L (98-107); Glucose 207 mg/dL (70-105); Osmolality,Calculated 299 (280-300); Potassium 4.4 mEq/L (3.5-5.1); Sodium 139 mEq/L (136-145); eGFR For African Americans > 60 (> 60); eGFR For Non-African Americans > 60 (> 60)
[2021-09-24 11:47] VITALS: BP 126/72; PULSE 84; TEMP 97.8
[2021-09-24] MEDS ORDERED: Haloperidol Lactate 5 MG/ML VIAL IM ONE (14:47)
== END 2021-09-24 18:00 | DRG 854 ==
LOC: 4WAOSI → SUATTDRO 22:42 → 3NENU 09-21 18:53
PROVIDERS: ADMIT Internal Medicine; ATTEND Internal Medicine